=== PATIENT | male | born 1990 | race Caucasian/White ===

== ENCOUNTER 2020-12-12 16:43 | Observation (INO) | payer OTHER ==
[~2020-12-12] VITALS: Ht 172.7 cm; Wt 78.5 kg
[~2020-12-12 16:43] MED LIST: HYDROCODON-ACE1 EAC4 PO; PENTASA500 MG PO; PREDNISONE10 MG PO; PREDNISONE20 MG PO; VITAMIN D21250 MCG PO
[2020-12-12 22:37] LABS: RED BLOOD COUNT 4.75 M/UL (4.20-5.50); WHITE BLOOD COUNT 10.7 K/UL (4.5-11.0)
[2020-12-12 22:53] LABS: BUN/CREATININE RATIO 14 (0-10)
--- NOTE | 2020-12-13 17:56 | NUR ---
POLAR ICE IN PLACED- APPLIED @[id number]
--- NOTE | 2020-12-14 12:10 | NUR ---
pateint reports of knowledgeable of cast care for he had it before
[2020-12-24 18:12] LABS: OXYCODONE <1 ng/mL (10-100); OXYMORPHONE <1 ng/mL (1-8)
== END 2020-12-14 13:05 | disposition home or self-care (01) ==
LOC: M/S 19:37 → CDU 19:37 → M/S 19:50
PROVIDERS: Internal Medicine; Podiatrist Foot & Ankle Surgery; ADMIT Internal Medicine Infectious Disease
DX: S92.351K Displaced fracture of fifth metatarsal bone, right foot, subsequent encounter for fracture with nonunion (principal); W18.42XA Slipping, tripping and stumbling without falling due to stepping into hole or opening, initial encounter; K50.90 Crohn's disease, unspecified, without complications; F17.210 Nicotine dependence, cigarettes, uncomplicated; Z79.52 Long term (current) use of systemic steroids; Z88.0 Allergy status to penicillin; Z88.6 Allergy status to analgesic agent; Z20.822 Contact with and (suspected) exposure to COVID-19
CPT/HCPCS: 36415; 73630; 76000; 80048; 85025; 96374; 96375; C1713; C1762; G0378; G0379; G0480; J0690; J1100; J1720; J1885; J2001; J2250; J2270; J2405; J2550; J2704; J2795; J3010; J3370; J7120; U0002

== ENCOUNTER → 2020-12-25 | Outpatient (CLI) | payer OTHER ==
[~2020-12-25] MED LIST changes: +ASPIRIN CHEWABL81 MG PO
== END ==
LOC: KOH-I 14:26
DX: S92.351D Displaced fracture of fifth metatarsal bone, right foot, subsequent encounter for fracture with routine healing (principal)
CPT/HCPCS: 73630

== ENCOUNTER → 2021-01-08 | Outpatient (CLI) | payer OTHER | LOC: KOH-I 11:50 | DX: S92.351A Displaced fracture of fifth metatarsal bone, right foot, initial encounter for closed fracture (principal); S92.351D Displaced fracture of fifth metatarsal bone, right foot, subsequent encounter for fracture with routine healing | CPT/HCPCS: 73630 ==

== ENCOUNTER 2021-01-19 12:17 | Emergency (ER) | payer OTHER ==
[~2021-01-19 12:17] MED LIST changes: -ASPIRIN CHEWABL81 MG PO
[2021-01-19 15:01] LABS: HEMOGLOBIN 15.1 gm/dl (14.0-17.5); RED BLOOD COUNT 4.77 M/UL (4.20-5.50); WHITE BLOOD COUNT 9.6 K/UL (4.5-11.0)
[2021-01-19 15:19] LABS: BUN/CREATININE RATIO 14 (0-10)
[2021-01-19] MEDS ORDERED: ASPIRIN CHEWABL81 MG PO (18:37)
== END 2021-01-19 18:45 | disposition home or self-care (01) ==
LOC: ER1 12:17
PROVIDERS: Physician Assistant Medical
DX: G45.9 Transient cerebral ischemic attack, unspecified (principal); R51.9 Headache, unspecified
CPT/HCPCS: 70450; 70496; 70498; 71045; 80053; 81001; 82550; 82553; 83874; 84484; 85025; 85610; 85730; 93005; 96374; 99285; J1885; J7030; Q9967

== ENCOUNTER → 2021-01-29 | Outpatient (CLI) | payer OTHER ==
[~2021-01-29] MED LIST changes: +ASPIRIN CHEWABL81 MG PO
== END ==
LOC: KOH-I 09:59
DX: S92.351D Displaced fracture of fifth metatarsal bone, right foot, subsequent encounter for fracture with routine healing (principal); Z96.7 Presence of other bone and tendon implants
CPT/HCPCS: 73630

== ENCOUNTER → 2021-02-19 | Outpatient (CLI) | payer OTHER | LOC: KOH-I 11:03 | DX: S92.351D Displaced fracture of fifth metatarsal bone, right foot, subsequent encounter for fracture with routine healing (principal) | CPT/HCPCS: 73630 ==

== ENCOUNTER → 2021-02-20 | Outpatient (CLI) | payer SELFPAY | LOC: LBRF 17:40 | DX: T81.49XA Infection following a procedure, other surgical site, initial encounter (principal) | CPT/HCPCS: 87070; 87077; 87186; 87205 ==

== ENCOUNTER → 2021-03-02 | Outpatient (CLI) | payer OTHER | LOC: KOH-I 03-01 14:30 | DX: S92.351K Displaced fracture of fifth metatarsal bone, right foot, subsequent encounter for fracture with nonunion (principal) | CPT/HCPCS: 73700 ==